=== PATIENT | female | born 1955 | race Caucasian/White ===

== ENCOUNTER 2020-03-21 09:53 | Outpatient (REF) | payer BC, SELFPAY ==
--- NOTE | 2020-03-21 10:50 | XR_ITS ---
EXAMINATION: XR BILATERAL AP KNEES STANDING XR LEFT KNEE 2 VIEWS CLINICAL INFORMATION: Left knee pain. COMPARISON: None TECHNIQUE: AP bilateral knee standing. Left knee 2 views. FINDINGS: AP BILATERAL KNEE STANDING: There is severe loss of medial compartment joint space both knees with genu varus deformity. There is [id number] loss of lateral compartment joint space both knees as well. LEFT KNEE: There is a lucency with adjacent sclerotic density and periosteal thickening most likely healing/healed stress fracture. Other differentials such as underlying lesion is considered less likely. Moderate degenerative periarticular spurring seen in the patella femoral and posterior tibial femoral joints. Loose bodies along the posterior knee joint is not excluded. There is minimal prepatellar soft tissue swelling. XR/XR knee LT 2V IMPRESSION: 1. Severe degenerative osteoarthritis medial compartments both knees. There is moderate degenerative changes lateral compartment both knees and patellofemoral compartment left knee with moderate osteophytosis. 2. 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 3. There is likely old healing or healed stress fracture medial proximal tibia. Other etiologies such as underlying osteoid lesions are considered less likely. Correlation with MRI left knee can be performed with attention to the proximal tibia.
--- NOTE | 2020-03-21 10:50 | XR_ITS ---
EXAMINATION: XR BILATERAL AP KNEES STANDING XR LEFT KNEE 2 VIEWS CLINICAL INFORMATION: Left knee pain. COMPARISON: None TECHNIQUE: AP bilateral knee standing. Left knee 2 views. FINDINGS: AP BILATERAL KNEE STANDING: There is severe loss of medial compartment joint space both knees with genu varus deformity. There is [id number] loss of lateral compartment joint space both knees as well. LEFT KNEE: There is a lucency with adjacent sclerotic density and periosteal thickening most likely healing/healed stress fracture. Other differentials such as underlying lesion is considered less likely. Moderate degenerative periarticular spurring seen in the patella femoral and posterior tibial femoral joints. Loose bodies along the posterior knee joint is not excluded. There is minimal prepatellar soft tissue swelling. XR/XR knee standing BI IMPRESSION: 1. Severe degenerative osteoarthritis medial compartments both knees. There is moderate degenerative changes lateral compartment both knees and patellofemoral compartment left knee with moderate osteophytosis. 2. 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 3. There is likely old healing or healed stress fracture medial proximal tibia. Other etiologies such as underlying osteoid lesions are considered less likely. Correlation with MRI left knee can be performed with attention to the proximal tibia.
== END 2020-03-21 09:54 | disposition home or self-care (01) ==
LOC: HO.HOSX 09:53
PROVIDERS: PCP Internal Medicine Endocrinology, Diabetes & Metabolism; Visit Provider Orthopaedic Surgery
DX: M25.562 Pain in left knee (principal); M17.0 Bilateral primary osteoarthritis of knee
CPT/HCPCS: 73560; 73565